=== PATIENT | female | born 1995 | race Caucasian/White ===

== ENCOUNTER 2018-03-26 15:54 | Emergency (ER) | payer OTHER ==
--- NOTE | 2018-03-26 16:02 | PDOC ---
Attending Attestation - Resident Resident Name: Nahid Borjas - ED Attending Attestation I have performed the following: I have examined & evaluated the patient, The case was reviewed & discussed with the resident, I agree w/resident's findings & plan, Exceptions are as noted - HPI HPI: 03/29/18 11:45 22 yo F who is otherwise healthy, she presents to the ER with a complaint of dysuria x 5 days. Mild left flank pain (+) cloudy urine. LMP 2 weeks ago. No fevers or chills No hematuria, vaginal discharge/bleeding, pelvic pain, dyspareurnia - Physicial Exam PE: 03/29/18 11:46 03/26/18 16:13 GENERAL: Awake, alert, and fully oriented, in no acute distress LUNGS: No distress, speaks full sentences, clear to auscultation bilaterally HEART: Regular rate and rhythm, normal S1 and S2, no murmurs, rubs or gallops, peripheral pulses normal and equal bilaterally. ABDOMEN: Soft, + Suprpapubic ttp, normoactive bowel sounds, NDS. Neg CVA ttp. - Medical Decision Making 03/29/18 11:47 22 yo F presenting to the ER with a complaint of dysuria Likely UTI Pt has mild flank discomfort Will discharge to home on abx Clinical impression: UTI, initial presentation
[2018-03-26 16:03] VITALS: BP 100/61; PULSE 72; TEMP 98.4; BMI 19.7
--- NOTE | 2018-03-26 16:07 | PDOC ---
History of Present Illness - General Chief Complaint: Pain Stated Complaint: BURNING PAIN ON URINATION Time Seen by Provider: 03/26/18 16:01 - History of Present Illness Initial Comments: 03/26/18 16:03 22 yo F with no significant pmh who p/w dysuria. Patient reports 5 days of stable dysuria with absent hematuria, or flank pain. Reports cloudy urine. LMP 2 weeks ago. Endorses increased PO water intake to mitigate symptoms. Reports UTI's in childhood. Denies F/C, N/V, CP, SOB, abdominal pain, diarrhea, constipation, BPR, hematuria, vaginal discharge/bleeding, pelvic pain, dyspareurnia, weakness, lightheadedness, sensory changes. PMHx: as noted above. Denies h/o abdominal surgery. ROS: as noted above SHx: Denies tobacco, IVDA, or Etoh. Sexually active with 1 male partner. Denies h/o STIs. Allergies: NKDA Past History - Past Medical History Allergies/Adverse Reactions: Allergies Allergy/AdvReac Type Severity Reaction Status Date / Time nut - unspecified Allergy Severe Difficulty Verified 03/26/18 15:57 Breathing Home Medications: Ambulatory Orders Cefpodoxime Proxetil [Vantin -] 200 mg PO Q12H 3 Days #6 tablet MDD 2 tab - Suicide/Smoking/Psychosocial Hx Smoking History: Current every day smoker Number of Cigarettes Smoked Daily: 5 'Breaking Loose' booklet given: 11/12/15 Hx Alcohol Use: Yes Drug/Substance Use Hx: No Substance Use Type: Alcohol Review of Systems - Review of Systems Comments:: 03/26/18 16:12 GENERAL/CONSTITUTIONAL: No fever or chills. No weakness. HEAD, EYES, EARS, NOSE AND THROAT: No change in vision. No ear pain or discharge. No sore throat. CARDIOVASCULAR: No chest pain or shortness of breath RESPIRATORY: No cough, wheezing, or hemoptysis. GASTROINTESTINAL: No nausea, vomiting, diarrhea or constipation. GENITOURINARY:+ Dysuria. No frequency, or change in urination. MUSCULOSKELETAL: No joint or muscle swelling or pain. No neck or back pain. SKIN: No rash NEUROLOGIC: No headache, vertigo, loss of consciousness, or change in strength/ sensation. ENDOCRINE: No increased thirst. No abnormal weight change HEMATOLOGIC/LYMPHATIC: No anemia, easy bleeding, or history of blood clots. ALLERGIC/IMMUNOLOGIC: No hives or skin allergy. *Physical Exam - Physical Exam Comments: 03/26/18 16:13 GENERAL: Awake, alert, and fully oriented, in no acute distress HEAD: No signs of trauma, normocephalic, atraumatic EYES: PERRLA, EOMI, sclera anicteric, conjunctiva clear ENT: Hearing grossly normal, nares patent, oropharynx clear without exudates. Moist mucosa NECK: Normal ROM, supple, no lymphadenopathy, JVD, or masses LUNGS: No distress, speaks full sentences, clear to auscultation bilaterally HEART: Regular rate and rhythm, normal S1 and S2, no murmurs, rubs or gallops, peripheral pulses normal and equal bilaterally. ABDOMEN: Soft, + Suprpapubic ttp, normoactive bowel sounds, NDS. No guarding, no rebound. No masses. Neg CVA ttp. EXTREMITIES : Normal inspection, Normal range of motion, no edema. No clubbing or cyanosis. SKIN: Warm, Dry, normal turgor, no rashes or lesions noted Medical Decision Making - Medical Decision Making 03/26/18 16:16 22 yo F with no significant pmh who p/w dysuria. VSS, AF. + Suprpapubic ttp. Probable cystitis. Low suspicion pyelnoephritis.Non toxic appearing, with asbsent CVA ttp or flank pain. DDx also includes nephrolithiasis ( obx. vs. non obstructive), appendicitis, urethritis. ED Course: UA, Uriine Cx., Urine Preg 03/26/18 17:09 UA: 3 + Blood, 10-20 RBC, and 20-30 WBC. 1 + Leuk Est. Patient stable for d/c with return precautions. Advised to take Cefpodoxime BID. *DC/Admit/Observation/Transfer Diagnosis at time of Disposition: Dysuria - Discharge Dispostion Disposition: HOME Condition at time of disposition: Stable Decision to Admit order: No - Prescriptions Prescriptions: Cefpodoxime Proxetil [Vantin -] 200 mg PO Q12H 3 Days #6 tablet MDD 2 tab - Referrals - Patient Instructions Printed Discharge Instructions: DI for Dysuria -- Adult Additional Instructions: Please return to the emergency department with any new or worsening symptoms or concerns. Please follow up with your primary care physician within 72 hours. Please take Cefpodoxime two times a day for 3 days. - Post Discharge Activity - Attestations Physician Attestion: 03/26/18 16:20 I attest to the information provided in this note.
[2018-03-26 16:35] LABS: HCG,QUALITATIVE URINE Negative
[2018-03-26 16:48] LABS: URINE APPEARANCE Cloudy; URINE BILIRUBIN Negative (NEGATIVE); URINE GLUCOSE (UA) Negative (NEGATIVE); URINE KETONE Negative (NEGATIVE); URINE NITRITE Negative (NEGATIVE); URINE PROTEIN Trace (NEGATIVE); URINE UROBILINOGEN 0.2 (0.2-1.0)
[2018-03-26 16:54] LABS: URINE COLOR YELLOW; URINE LEUK ESTERASE 1+ (NEGATIVE)
[2018-03-26 16:55] LABS: EPI CELLS 3+ /HPF; URINE BACTERIA 3+ /hpf (NEGATIVE); URINE WBC 20-30 (0-5)
--- NOTE | 2018-03-30 10:57 | PDOC ---
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 Medical Decision Making - Medical Decision Making 03/30/18 10:55 Received all from Lab Re:ESBL in urine Pt discharged on Cefpodozime and bacteria is not sensitive to Penicillins, Cephalosporins, or Aztreonam Call placed to pt phone number [phone] Call went to voicemail, voicemail full Will call back later today If not successful, will send a letter to pt home 03/30/18 17:08 Call placed to patient Sensitive to Macrobid and Bactrim Order placed for Macrobid Pt states she feels 85% better We have discussed reasons to return - fever, chills, increased pain, flank pain *DC/Admit/Observation/Transfer Diagnosis at time of Disposition: Dysuria - Discharge Dispostion Disposition: HOME Condition at time of disposition: Stable - Prescriptions Prescriptions: Cefpodoxime Proxetil [Vantin -] 200 mg PO Q12H 3 Days #6 tablet MDD 2 tab Nitrofurantoin Macrocrystal [Macrodantin] 100 mg PO BID #14 capsule - Referrals - Patient Instructions Printed Discharge Instructions: DI for Dysuria -- Adult Additional Instructions: Please return to the emergency department with any new or worsening symptoms or concerns. Please follow up with your primary care physician within 72 hours. Please take Cefpodoxime two times a day for 3 days. - Post Discharge Activity
== END 2018-03-26 17:16 | disposition home or self-care (01) ==
LOC: FER 15:54
DX: R30.0 Dysuria (principal); F17.210 Nicotine dependence, cigarettes, uncomplicated
CPT/HCPCS: 81003; 81015; 84703; 87086; 87186; 99282-25

== ENCOUNTER 2018-06-20 21:46 | Emergency (ER) | payer OTHER ==
[2018-06-20 21:53] VITALS: BP 110/71; PULSE 88; TEMP 98.7; BMI 21.2
[2018-06-20] MEDS ORDERED: FAMOTIDINE 20 MG TABLET PO ONE (22:16)
--- NOTE | 2018-06-20 22:16 | PDOC ---
History of Present Illness - General History Source: Patient Exam Limitations: No Limitations - History of Present Illness Initial Comments: 06/20/18 22:18 The patient is a 23 year old female with no significant past medical history who presents to the ER s/p allergic reaction prior to arrival. Patient states she was having a protein shake at approximately 8:30PM which contained brazil nuts. Patient knows she has a sensitivity to brazil nuts after trying one at age 12 and subsequently having throat irritation. Patient reports she had throat tingling and coarse sensation approximately 1 minute after drinking the protein shake. Patient states the throat irritation has resolved after taking 2 Benadryls. Patient is now complaining of mild abdominal discomfort and nausea that began approximately 15 minutes after drinking the protein shake. Patient denies any tongue or lip swelling. Patient is currently on macrobid for a UTI but reports no other medications. The patient denies chest pain, shortness of breath, headache, and dizziness. Denies fever, chills, vomit, diarrhea, and constipation. Denies dysuria, frequency, urgency, and hematuria. Allergies: NKA Past surgical history: None reported. Social history: No reported alcohol, drug, or cigarette use. PCP:Dr. Phoenix <Sarah Franklin - Last Filed: 06/20/18 22:18> <Pennie Tinajero - Last Filed: 06/21/18 05:23> - General Chief Complaint: Allergic Reaction Stated Complaint: ALLERGIC REACTION Time Seen by Provider: 06/20/18 22:04 Past History <Sarah Franklin - Last Filed: 06/20/18 22:18> - Past Medical History COPD: No - Suicide/Smoking/Psychosocial Hx Smoking History: Unknown if ever smoked Have you smoked in the past 12 months: No Number of Cigarettes Smoked Daily: 0 Information on smoking cessation initiated: No 'Breaking Loose' booklet given: 11/12/15 Hx Alcohol Use: No Drug/Substance Use Hx: No Substance Use Type: Alcohol <Pennie Tinajero - Last Filed: 06/21/18 05:23> - Past Medical History Allergies/Adverse Reactions: Allergies Allergy/AdvReac Type Severity Reaction Status Date / Time nut - unspecified Allergy Severe Difficulty Verified 03/26/18 15:57 Breathing Home Medications: Ambulatory Orders Cefpodoxime Proxetil [Vantin -] 200 mg PO Q12H 3 Days #6 tablet MDD 2 tab Nitrofurantoin Macrocrystal [Macrodantin] 100 mg PO BID #14 capsule 03/30/18 Review of Systems - Review of Systems Able to Perform ROS?: Yes Comments:: 06/20/18 22:19 All systems are reviewed and negative except as noted in the HPI <Sarah Franklin - Last Filed: 06/20/18 22:18> *Physical Exam - Vital Signs Last Vital Signs Temp Pulse Resp BP Pulse Ox 98.7 F 88 14 110/71 100 06/20/18 21:50 06/20/18 21:50 06/20/18 21:50 06/20/18 21:50 06/20/18 21:50 - Physical Exam Comments: 06/20/18 22:20 ADULT EXAM GENERAL: Awake, alert, and fully oriented, in no acute distress HEAD: No signs of trauma EYES: PERRLA, EOMI, sclera anicteric, conjunctiva clear ENT: Auricles normal inspection, hearing grossly normal, nares patent. Moist mucosa NECK: Normal ROM, supple, no lymphadenopathy, JVD, or masses LUNGS: Breath sounds equal, clear to auscultation bilaterally. No wheezes, and no crackles HEART: Regular rate and rhythm, normal S1 and S2, no murmurs, rubs or gallops ABDOMEN: (+) Minimal epigastric tenderness. Soft, normoactive bowel sounds. No guarding, no rebound. No masses EXTREMITIES: Normal range of motion, no edema. No erythema or tenderness. DP/PT pulses 2+ and symmetric. Warm and well perfused. NEUROLOGICAL: Moves all extremities. Normal speech, normal gait SKIN: Warm, Dry, normal turgor, no rashes or lesions noted. <Sarah Franklin - Last Filed: 06/20/18 22:18> - Vital Signs Last Vital Signs Temp Pulse Resp BP Pulse Ox 98.7 F 88 14 110/71 100 06/20/18 21:50 06/20/18 21:50 06/20/18 21:50 06/20/18 21:50 06/20/18 21:50 <Pennie Tinajero - Last Filed: 06/21/18 05:23> ED Treatment Course - Medications Given in the ED: ED Medications Discontinued Medications Generic Name Dose Route Start Last Admin Trade Name Lucero PRN Reason Stop Dose Admin Famotidine 20 mg 06/20/18 22:16 06/20/18 22:17 Pepcid - PO 06/20/18 22:17 20 mg ONCE ONE Administration <Sarah Franklin - Last Filed: 06/20/18 22:18> Medical Decision Making - Medical Decision Making Documentation has been prepared under my direction and personally reviewed by me in its entirety. I attest that this documented accurately reflects all work, treatment, procedures and medical decision making performed by me. As noted above, this 23-year-old woman presents after taking 50 mg of Benadryl for throat tingling/"coarse" sensation after consuming small amount of known allergen (Britton nut) throat discomfort has resolved with the patient now has epigastric discomfort/nausea. No other symptoms noted. Exam as noted. Clinical presentation most consistent with ALLERGIC reaction, adequately treated with diphenhydramine. She also appears to now have gastrointestinal symptoms of ALLERGIC reaction. Patient given Pepcid 20 mg by mouth. Patient continued to do well without any further symptoms of allergic reaction. The patient was observed for approximately 1 hour. She was discharged with instructions to take Benadryl,25 mg every 8 hrs around the clock for 24 hrs, then as needed. She should followup with her PMD, Dr Phoenix within 2 days and return to the ER if she has any edema of lips/tongue or difficulty swallowing/breathing <Pennie Tinajero - Last Filed: 06/21/18 05:23> *DC/Admit/Observation/Transfer - Attestations Scribe Attestion: 06/20/18 22:20 Documentation prepared by Sarah Franklin, acting as medical billing and coding instructor for Pennie Tinajero MD. <Sarah Franklin - Last Filed: 06/20/18 22:18> <Pennie Tinajero - Last Filed: 06/21/18 05:23> Diagnosis at time of Disposition: Allergic reaction Qualifiers: Encounter type: initial encounter Qualified Code(s): T78.40XA - Allergy, unspecified, initial encounter - Discharge Dispostion Disposition: HOME Condition at time of disposition: Stable - Referrals Referrals: Mónica Phoenix [Primary Care Provider] - - Patient Instructions Printed Discharge Instructions: DI for General Allergic Reactions Additional Instructions: Continue Benadryl 25 mg every every 8 hours for the next 24 hours After 24 hours, Benadryl as needed for symptoms Can use Pepcid 20 mg daily for the next few days Return to ER immediately if you have lip/tongue swelling or difficulty swallowing/breathing Follow-up with Dr. Phoenix within the next 48 hours - Post Discharge Activity
[2018-06-20] MEDS ORDERED: FAMOTIDINE 20 MG TABLET ONE (22:18)
== END 2018-06-20 22:43 | disposition home or self-care (01) ==
LOC: FER 21:46
DX: T78.40XA Allergy, unspecified, initial encounter (principal)
CPT/HCPCS: 99282-25

== ENCOUNTER 2021-07-19 16:34 | Emergency (ER) | payer SELFPAY ==
[2021-07-19 16:41] VITALS: BP 100/69; PULSE 95; BMI 21.2
[2021-07-19 17:00] LABS: HCG,QUALITATIVE URINE Negative
[2021-07-19] MEDS ORDERED: KETOROLAC TROMETHAMINE 30 MG/1 ML VIAL IVPUSH ONE (17:05)
[2021-07-19] MEDS ORDERED: DEXTROSE 5%-NORMAL SALINE 1,000 ML IV ONE (17:07)
[2021-07-19] MEDS ORDERED: KETOROLAC TROMETHAMINE 30 MG/1 ML VIAL ONE (17:11)
[2021-07-19 17:44] LABS: EPITHELIAL CELLS FEW /hpf
[2021-07-19] MEDS ORDERED: CEFTRIAXONE 1 GM in DEXTROSE 5%-WATER - 100 ML IVPB ONE (17:52)
[2021-07-19] MEDS ORDERED: cefTRIAXone SODIUM 1 GM VIAL ONE (17:54)
[2021-07-19 18:00] LABS: BASO % 1.2 % (0-2.0); HEMATOCRIT 39.8 % (32.4-45.2); HEMOGLOBIN 12.8 GM/dl (10.7-15.3); LYMPH % 6.7 % (8-40); MCH 30.8 pg (25.7-33.7); MEAN PLT VOLUME 8.5 fl (7.5-11.1); MONO % 12.9 % (3.8-10.2); NEUT % 79.2 % (42.8-82.8); PLATELET COUNT 234 10^3/uL (134-434); RBC 4.14 M/mm3 (3.60-5.2); RDW 11.8 % (11.6-15.6); WHITE BLOOD COUNT 13.3 K/mm3 (4.0-10.8)
[2021-07-19 18:11] LABS: ALBUMIN 3.8 g/dl (3.4-5.0); BILIRUBIN,TOTAL 1.2 mg/dl (0.2-1); CALCIUM 8.7 mg/dl (8.5-10); CREATININE 0.7 mg/dl (0.55-1.3)
[2021-07-19 18:27] VITALS: TEMP 99.4
== END 2021-07-19 18:22 | disposition home or self-care (01) ==
LOC: FER 16:34
PROC: 3E03329 Introduction of Other Anti-infective into Peripheral Vein, Percutaneous Approach (ICD-10-PCS; principal; 2021-07-19)
PROC: 3E033GC Introduction of Other Therapeutic Substance into Peripheral Vein, Percutaneous Approach (ICD-10-PCS; 2021-07-19)
PROC: 3E0333Z Introduction of Anti-inflammatory into Peripheral Vein, Percutaneous Approach (ICD-10-PCS; 2021-07-19)
DX: N10 Acute pyelonephritis (principal)
CPT/HCPCS: 36415; 80053; 81003; 81015; 84703; 85025; 87086; 87186; 99284-25

== ENCOUNTER 2023-04-03 15:31 | Emergency (ER) | payer OTHER ==
[2023-04-03 15:50] VITALS: BP 108/73; PULSE 84; RESP 16; TEMP 98.1; BMI 20.9
[2023-04-03] MEDS ORDERED: SODIUM CHLORIDE 1,000 ML IV STA (15:55)
[2023-04-03] MEDS ORDERED: ONDANSETRON 4 MG/2 ML VIAL IVPB ONE (15:56)
[2023-04-03] MEDS ORDERED: FAMOTIDINE 20 MG/50 ML IVPB 20 MG/50 ML MG IVPB ONE ×2 (15:56→16:32)
[2023-04-03] MEDS ORDERED: ONDANSETRON 4 MG/2 ML VIAL ONE (16:32)
[2023-04-03 17:50] LABS: ALBUMIN 4.4 g/dl (3.4-5.0); BILIRUBIN,TOTAL 1.2 mg/dl (0.2-1); BLOOD UREA NITROGEN 6.9 mg/dl (7-18); CALCIUM 9.2 mg/dl (8.5-10.1); CREATININE 0.6 mg/dl (0.6-1.3); SGOT/AST 11.8 U/L (15-37); SGPT/ALT 9.8 U/L (7-52); TOT PROT 6.9 g/dl (6.4-8.2)
[2023-04-03 18:07] LABS: HEMATOCRIT 42.7 % (32.4-45.2); HEMOGLOBIN 14.7 G/dL (10.7-15.3); MCH 32.7 pg (25.7-33.7); MCHC 34.3 g/dl (32.0-36.0); MEAN CELL VOLUME 95.3 fl (80-96); MEAN PLT VOLUME 8.3 fl (7.5-11.1); PLATELET COUNT 318.9 10^3/uL (134-434); RBC 4.48 10^6/uL (3.60-5.2); RDW 13.2 % (11.6-15.6); WHITE BLOOD COUNT 10.6 10^3/uL (4.0-10.8)
[2023-04-03 18:09] LABS: PLATELET ESTIMATE ADEQUATE
[2023-04-03 18:18] LABS: HCG,QUALITATIVE URINE Negative
[2023-04-03 18:26] LABS: EPITHELIAL CELLS RARE /hpf
== END 2023-04-03 18:39 | disposition home or self-care (01) ==
LOC: FER 15:31
PROC: 3E033GC Introduction of Other Therapeutic Substance into Peripheral Vein, Percutaneous Approach (ICD-10-PCS; principal; 2023-04-03)
PROC: 3E033GC Introduction of Other Therapeutic Substance into Peripheral Vein, Percutaneous Approach (ICD-10-PCS; 2023-04-03)
DX: R11.2 Nausea with vomiting, unspecified (principal); R10.13 Epigastric pain
CPT/HCPCS: 36415; 80053; 81003; 81015; 84703; 85027; 99284-25